=== PATIENT | female | born 1970 | race Hispanic/Latino ===

== ENCOUNTER → 2024-06-24 | Day surgery (SDC) | payer OTHER, MEDICARE ==
[~2024-06-24] MED LIST: ASPIRIN81 MG PO; ATORVASTATIN CA80 MG PO; FENTANYL CITRATE/PF 100MCG/2 ML INJ ONE; HYOSCYAMINE SULFATE 0.5 MG/ML INJ ONE; LISINOPRIL10 MG PO; NIFEDIPINE10 MG PO; OXYBUTYNIN CHLOR5 MG PO; PROPOFOL IV EMULSION 10 MG/ML 20 ML VIAL ONE
[2024-06-24] MEDS: LACTATED RINGER'S 1,000 ML ONE (08:50)
[2024-06-24 11:05] VITALS: BP 157/74; PULSE 94; RESP 18; TEMP 97.7; O2SAT 100
== END | disposition home or self-care (01) ==
LOC: OR 08:00
PROVIDERS: ATTEND Internal Medicine Gastroenterology
DX: Z12.11 Encounter for screening for malignant neoplasm of colon (principal); D12.0 Benign neoplasm of cecum; D12.3 Benign neoplasm of transverse colon; D12.4 Benign neoplasm of descending colon; K57.30 Diverticulosis of large intestine without perforation or abscess without bleeding; K64.8 Other hemorrhoids; I10 Essential (primary) hypertension; E78.5 Hyperlipidemia, unspecified; E03.9 Hypothyroidism, unspecified; I69.351 Hemiplegia and hemiparesis following cerebral infarction affecting right dominant side; I69.328 Other speech and language deficits following cerebral infarction; M19.90 Unspecified osteoarthritis, unspecified site; Z01.810 Encounter for preprocedural cardiovascular examination; Z79.82 Long term (current) use of aspirin; Z79.899 Other long term (current) drug therapy
CPT/HCPCS: 45385; 93005; J1980; J2704; J3010; J7121; 45378